=== PATIENT | female | born 1955 | race Caucasian/White ===

== ENCOUNTER → 2025-01-11 09:15 | Outpatient (BNV) | payer BC, SELFPAY | PROVIDERS: Visit Provider Psychiatry & Neurology Psychiatry | DX: F33.2 Major depressive disorder, recurrent severe without psychotic features (principal); F43.10 Post-traumatic stress disorder, unspecified | CPT/HCPCS: 99213 ==

== ENCOUNTER 2025-01-17 09:15 | Outpatient (RCR) | payer BC, SELFPAY ==
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
[2025-01-10 09:39] VITALS: BMI 31.6
[2025-01-10 09:40] VITALS: BP 110/68; PULSE 68; TEMP 36.5
--- NOTE | 2025-01-10 14:07 | PC.ADMIT ---
Patient is a 69 year old female who was referred to [facility] by [facility] crisis secondary to increased sxs of depression with passive SI, anxiety, and PTSD. Patient reports she has no day structure. Stated she sits at home and does nothing all day ruminating on her life and past trauma history. Patient reports she feels stuck in her life. Reports her is currently working. Patient also reports not taking medications consistently taking Lamictal 200 mg daily three days a week and has stopped taking Wellbutrin a week ago as she felt it was making her angry. Medication education provided. Dr. Muna Aiken is aware. Patient is alert and oriented x4. She is calm and cooperative. She presented with depressed mood and anxious affect, tearful at times. Patient denied SI currently. Patient stated, I have had fleeting ones . Denied any plan or intent. Patient was given a copy of her safety plan if needed. Medications updated with patient and patient's pharmacy. Respite for 5 days. Patient stated it did help but it came back again.
--- NOTE | 2025-01-12 16:12 | HO.PHP ---
Pt's case has been opened and reviewed in treatment teams.
--- NOTE | 2025-01-18 20:16 | HO.PHPPROGNO ---
Subjective Subjective Date of Service: 01/18/25 Reason For Visit: depression,anxiety Interim History: Patient seen for follow-up, anticipating discharge at the end of program today.? I liked the program but I that's the end the trauma Patient requesting to leave AMA, finds the groups too emotionally provoking and triggering. Reports no acute issues or concerns. Medication compliant, medications well-tolerated. Denies any adverse effects.?Lamictal at 250 mg, take trazodone and WEllbutrin. Mood is stable.? Denies any hopelessness or SI. Denies thoughts of harming self or others at this time. Denies any paranoia or AH or VH. Sleep, appetite, energy stable. Medication Compliance: Yes Side effects from medications: No Attending Groups: Yes Review of Systems Acute medical concerns: No Mental Status Exam Mental Status Exam Narrative: Alert, oriented, in no acute distress. Calm, cooperative. Mood stable, affect appropriate. Speech normal. Thought process linear, coherent, more goal-directed. Thought content related to stressors, future-oriented, denies any helplessness, hopelessness or SI.? No aggressive ideation or HI. No paranoia or delusional content elicited. No evidence of psychosis. Insight and judgment fair-good. Diagnostics Vital Signs (24Hr): BMI result Body Mass Index 31.6 Assessment & Plan Assessment & Plan (1) Major depressive disorder, recurrent severe without psychotic features: Status: Acute Code(s): F33.2 - Major depressive disorder, recurrent severe without psychotic features (2) Posttraumatic stress disorder: Status: Acute Code(s): F43.10 - Post-traumatic stress disorder, unspecified Plan Discharge from [facility] Continue regular medications? Refills sent to pharmacy Will defer further medication management to outpatient provider *Safety plan reviewed *Discharge diagnoses, treatment course, discharge plan have been reviewed with patient (including medication regime, medication management, potential side effects) as well as treatment rationale were also revisited *Discharge paperwork signed and given to patient, copy sent for scanning to chart Patient educated on: diagnosis and medication risk/benefits Informed Consent: understands Reason for contiued partial hosp. stay Substantial Risk for: stable for discharge Certification I certify that partial hospital treatment is medically necessary due to the symptoms and problems resulting from the patient's mental illness and the failure to treat the patient at the partial hospital level of care would likely result in the patient requiring inpatient psychiatric care which could not be prevented at a less intensive level of care. Total time managing care of this patient today __30__ minutes. Discharge Plan Discharge Attending provider: Kori Oconnor Medications: New lamotrigine 25 mg tablet 50 mg PO DAILY 14 Days Qty: 28 0RF Rx Instructions: Take with 200 mg tab for total of 250 mg qd bupropion HCl 100 mg tablet sustained-release 12 hr 100 mg PO QAM Qty: 30 0RF Continued lamotrigine 200 mg tablet 200 mg PO DAILY Patient Comments: Patient takes three days a week. simvastatin 40 mg tablet 40 mg PO QPM lorazepam 0.5 mg tablet 0.5 mg PO DAILY PRN (Reason: anxiety) Rx Instructions: Last filled #30 03/2024 Changed trazodone 50 mg tablet 75 mg PO BEDTIME PRN (Reason: insomnia) 14 Days Qty: 21 0RF Discontinued fexofenadine 180 mg Tablet 180 mg PO DAILY bupropion HCl 100 mg tablet sustained-release 12 hr 100 mg PO DAILY Patient Comments: Last took a week ago. fluticasone propionate [Flonase] 50 mcg/actuation [place],Suspension 1 spray INTRANASAL BID Rx Instructions: administer into each nostril Stand Alone Forms: Patient Portal Discharge page Patient Education: Depression (DC), PTSD (Post Traumatic Stress Disorder) (ED), PTSD (Post Traumatic Stress Disorder) (DC) Print Language: Mongolian
== END 2025-01-17 23:59 | disposition home or self-care (01) ==
LOC: HO.IOP 09:15
PROVIDERS: Visit Provider Psychiatry & Neurology Psychiatry
DX: F33.2 Major depressive disorder, recurrent severe without psychotic features (principal); F43.10 Post-traumatic stress disorder, unspecified; Z79.899 Other long term (current) drug therapy
CPT/HCPCS: 90791; S9480